=== PATIENT | female | born 1960 | race Caucasian/White ===

== ENCOUNTER → 2020-09-30 | Outpatient (CLI) | payer OTHER ==
[2020-10-01 08:14] LABS: RHEUMATOID ARTHRITIS FACTOR <10.0 IU/mL (0.0-13.9); VITAMIN D, 25-HYDROXY 28.3 ng/mL (30.0-100.0)
[2020-10-01 11:15] LABS: HBSAG SCREEN Negative (Negative); HCV AB 0.2 (0.0-0.9); HEP B CORE AB, TOT Negative (Negative)
[2020-10-03 04:08] LABS: QUANTIFERON MITOGEN VALUE >10.00 IU/mL (.); QUANTIFERON NIL VALUE 0.02 IU/mL (.); QUANTIFERON-TB GOLD PLUS Negative (Negative)
== END ==
LOC: LAB 10:49
PROVIDERS: Nurse Practitioner Family
DX: Z11.59 Encounter for screening for other viral diseases (principal); M25.549 Pain in joints of unspecified hand; M25.50 Pain in unspecified joint; R76.8 Other specified abnormal immunological findings in serum; M79.10 Myalgia, unspecified site; Z79.899 Other long term (current) drug therapy; M81.0 Age-related osteoporosis without current pathological fracture
CPT/HCPCS: 36415; 73130; 81001; 82550; 82570; 82728; 83520; 84156; 85652; 86140; 86200; 86431; 86704; 86803; 87340